=== PATIENT | female | born 1985 | race Two or more races ===

== ENCOUNTER 2017-05-06 15:57 | Inpatient (IN) | payer MEDICAID ==
[~2017-05-06] VITALS: Ht 160 cm; Wt 70.3 kg
--- NOTE | 2017-05-06 16:42 | Emergency Room Report ---
History of Present Illness General Chief Complaint: Abdominal Pain Source: Patient Present Illness HPI 31-year-old female with no sig pmhx p/w abdominal pain 3 days. Patient states pain started gradually, localized to right lower quadrant, non radiating, sharp in nature, constant. No relieving or exacerbating factors. Severity is 8/10. Pt reports n/v, 4 episodes of nbnb vomiting, 4 episodes of watery non bloody diarrhea + fever, chills. Has a history of 2 C-sections No hx of endoscopies/colonoscopies. States her last menstrual period was about one week ago. No dysuria no hematuria. Allergies: Coded Allergies: No Known Allergies (Unverified , 05/06/17) Patient History Past Medical History: see triage record Past Surgical History: none Pertinent Family History: none Last Menstrual Period: "Irregular - I don't remember" Has had tubal ligation Now: No Reviewed Nursing Documentation: PMH: Agreed, PSxH: Agreed Review of Systems All Other Systems: negative except mentioned in HPI Physical Exam Vital Signs Date Time Temp Pulse Resp B/P (MAP) Pulse Ox O2 Delivery O2 Flow Rate FiO2 05/06/17 16:12 100.6 99 18 113/68 100 Room Air Sp02 EP Interpretation: reviewed, normal General Appearance: alert, GCS 15, non-toxic, moderate distress Head: normocephalic, atraumatic Eyes: bilateral eye normal inspection, bilateral eye PERRL, bilateral eye EOMI ENT: normal ENT inspection, normal pharynx, normal voice, moist mucus membranes Neck: normal inspection, full range of motion, supple Respiratory: normal inspection, lungs clear, normal breath sounds, no respiratory distress, no retraction, no wheezing, speaking full sentences, chest symmetrical Cardiovascular #1: normal inspection, regular rate, rhythm, normal capillary refill Cardiovascular #2: 2+ radial (R), 2+ radial (L) Gastrointestinal: other - Right lower quadrant tenderness, voluntary guarding, rebound Musculoskeletal: normal inspection, back normal, normal range of motion, non- tender Neurologic: normal inspection, alert, oriented x3, responsive, motor strength/ tone normal, sensory intact, normal gait, speech normal Psychiatric: normal inspection, judgement/insight normal, memory normal Skin: normal inspection, normal color, no rash, warm/dry, well hydrated, normal turgor Medical Decision Making Diagnostic Impression: Primary Impression: Acute appendicitis with appendiceal abscess ER Course 31-year-old female, right-sided abdominal pain for 3 days Differential Diagnosis: High suspicion for appendicitis given physical exam Other differential diagnoses include : Gastritis, gastroenteritis, cholecystitis , diverticulitis, SBO, UTI/pyelo Plan: Basic labs, ua Tylenol, antibiotics, pain control, IVF CT abdopelvis ER course: Patient has remained HD stable during ED stay. Given fluids and antibiotics CT positive for appendicitis with abscess formation Dr Sherman made aware of patient-- will go to OR Disposition: Patient will be admitted to med surg. Discussed with hospitalist Dr Parker who has accepted patient Please note that this Emergency Department Report was dictated using Fanearcritical care unit nurse technology software, occasionally this can lead to erroneous entry secondary to interpretation by the dictation equipment Laboratory Tests Test 05/06/17 16:27 05/06/17 17:45 Urine Color Pale yellow Urine Appearance Clear Urine pH 7 (4.5-8.0) Urine Specific [place] 1.005 (1.005-1.035) Urine Protein Negative (NEGATIVE) Urine Glucose (UA) Negative (NEGATIVE) Urine Ketones Negative (NEGATIVE) Urine Occult Blood 4+ (NEGATIVE) H Urine Nitrite Negative (NEGATIVE) Urine Bilirubin Negative (NEGATIVE) Urine Urobilinogen Normal MG/DL (0.0-1.0) Urine Leukocyte Esterase Negative (NEGATIVE) Urine RBC 5-10 /HPF (0 - 2) H Urine WBC 0-2 /HPF (0 - 2) Urine Squamous Epithelial Cells Few /LPF (NONE/OCC) Urine Bacteria Few /HPF (NONE) Urine HCG, Qualitative Negative White Blood Count 12.4 K/UL (4.8-10.8) H Red Blood Count 3.79 M/UL (4.20-5.40) L Hemoglobin 11.4 G/DL (12.0-16.0) L Hematocrit 35.1 % (37.0-47.0) L Mean Corpuscular Volume 93 FL (80-99) Mean Corpuscular Hemoglobin 30.0 PG (27.0-31.0) Mean Corpuscular Hemoglobin Concent 32.4 G/DL (32.0-36.0) Red Cell Distribution Width 11.2 % (11.6-14.8) L Platelet Count 181 K/UL (150-450) Mean Platelet Volume 8.6 FL (6.5-10.1) Neutrophils (%) (Auto) 79.4 % (45.0-75.0) H Lymphocytes (%) (Auto) 11.4 % (20.0-45.0) L Monocytes (%) (Auto) 8.4 % (1.0-10.0) Eosinophils (%) (Auto) 0.2 % (0.0-3.0) Basophils (%) (Auto) 0.5 % (0.0-2.0) Sodium Level 137 MMOL/L (136-145) Potassium Level 4.2 MMOL/L (3.5-5.1) Chloride Level 103 MMOL/L (98-107) Carbon Dioxide Level 28 MMOL/L (21-32) Anion Gap 6 mmol/L (5-15) Blood Urea Nitrogen 9 mg/dL (7-18) Creatinine 0.7 MG/DL (0.55-1.30) Estimate Glomerular Filtration Rate > 60 mL/min (>60) Glucose Level 98 MG/DL (74-106) Calcium Level 8.8 MG/DL (8.5-10.1) Total Bilirubin 2.1 MG/DL (0.2-1.0) H Direct Bilirubin 0.4 MG/DL (0.0-0.3) H Aspartate Amino Transferase (AST) 28 U/L (15-37) Alanine Aminotransferase (ALT) 44 U/L (12-78) Alkaline Phosphatase 90 U/L (46-116) Total Protein 7.7 G/DL (6.4-8.2) Albumin 3.3 G/DL (3.4-5.0) L Globulin 4.4 g/dL Albumin/Globulin Ratio 0.8 (1.0-2.7) L Lipase 101 U/L (73-393) CT/MRI/US Diagnostic Results CT/MRI/US Diagnostic Results : Imaging Test Ordered: CT abdo pelvis w/ IV contrast Impression CT ABDOMEN & PELVIS With Contrast: No prior. Trace pleural fluid suspected on the right. Atelectasis. Findings compatible with appendicitis with appendicular abscess. Appendix has thick harrison with appendiceal caliber up to about 14 mm on axial images. Adjacent to the appendix/posterior to the cecum is an air-containing fluid collection suspicious for abscess formation. Measures about 4.5 cm on axials, image 62/3. Small amount of free fluid. There is some uroepithelial thickening of right ureters suspected which is likely reactive. 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 Correlate with UA. Suspect reactive nodes along with a reactive bowel wall thickening in region of inflamed appendix. Cholelithiasis. Involuting right ovarian cyst. Last Vital Signs Date Time Temp Pulse Resp B/P (MAP) Pulse Ox O2 Delivery O2 Flow Rate FiO2 05/06/17 16:12 100.6 99 18 113/68 100 Room Air Disposition: ADMITTED INPATIENT Condition: Serious Darby Ball M.D. May 06, 2017 16:42
[2017-05-06] MEDS ORDERED: cefTRIAXone 1 GM in NS 55 ML IVPB ONE (16:45)
[2017-05-06] MEDS ORDERED: Morphine Sulfate 4mg/ml Inj IVP ONE ×2 (16:45→20:15)
[2017-05-06 17:02] LABS: APPEARANCE,URINE CLEAR; KETONES,URINE NEGATIVE (NEGATIVE); LEUKOCYTE ESTERASE ,URINE NEGATIVE (NEGATIVE); NITRITE,URINE NEGATIVE (NEGATIVE); PH,URINE 7 (4.5-8.0); PROTEIN,URINE NEGATIVE (NEGATIVE); UROBILINOGEN,URINE NORMAL MG/DL (0.0-1.0)
[2017-05-06 17:09] LABS: BACTERIA,URINE FEW /HPF; SQUAMOUS EPITHELIAL CELL,UR FEW /LPF (NONE/OCC); WBC,URINE 0-2 /HPF (0 - 2)
[2017-05-06 18:09] LABS: BASOPHILS % (AUTO) 0.5 % (0.0-2.0); EOSINOPHILS % (AUTO) 0.2 % (0.0-3.0); LYMPHOCYTES % (AUTO) 11.4 % (20.0-45.0); MEAN CORPUSCULAR HGB CONC 32.4 G/DL (32.0-36.0); MEAN CORPUSCULAR VOLUME 93 FL (80-99); MEAN PLATELET VOLUME 8.6 FL (6.5-10.1); MONOCYTES % (AUTO) 8.4 % (1.0-10.0); NEUTROPHILS % (AUTO) 79.4 % (45.0-75.0); PLATELET COUNT 181 K/UL (150-450); RED BLOOD COUNT 3.79 M/UL (4.20-5.40); RED CELL DISTRIBUTION WIDTH 11.2 % (11.6-14.8); WHITE BLOOD COUNT 12.4 K/UL (4.8-10.8)
[2017-05-06 18:18] LABS: ANION GAP 6 mmol/L (5-15); CALCIUM 8.8 MG/DL (8.5-10.1); CARBON DIOXIDE 28 MMOL/L (21-32); CHLORIDE 103 MMOL/L (98-107); CREATININE 0.7 MG/DL (0.55-1.30); GLOMERULAR FILTRATION RATE > 60 mL/min (>60); POTASSIUM 4.2 MMOL/L (3.5-5.1); SODIUM 137 MMOL/L (136-145)
[2017-05-06 18:28] LABS: ALANINE AMINOTRANSFERASE 44 U/L (12-78); ALBUMIN/GLOBULIN RATIO 0.8 (1.0-2.7); ASPARTATE AMINO TRANSFERASE 28 U/L (15-37); LIPASE 101 U/L (73-393); TOTAL PROTEIN 7.7 G/DL (6.4-8.2)
[2017-05-06 18:30] LABS: BILIRUBIN,DIRECT 0.4 MG/DL (0.0-0.3)
[2017-05-06] MEDS ORDERED: Lidocaine 1% 10mg/ml/Epi 0.005mg/ml 30ml vial INJ ONE (21:24)
[2017-05-06] MEDS ORDERED: Ropivacaine 5mg/ml Vial 30ml INJ ONE (21:24)
[2017-05-06] MEDS ORDERED: fentaNYL 100 mcg/2 mL IV ONE (22:00)
[2017-05-06] MEDS ORDERED: NS Irrig 1000ml ONE (22:00)
[2017-05-06] MEDS ORDERED: Midazolam 2mg/2ml Inj ONE (22:00)
[2017-05-06] MEDS ORDERED: Propofol 200mg/20ml IV ONE (22:00)
[2017-05-06] MEDS ORDERED: Succinylcholine 20mg/ml 10ml vial ONE (22:00)
[2017-05-06] MEDS ORDERED: LR 1000ml ONE (22:00)
[2017-05-06] MEDS ORDERED: Sterile Water Irrig 1000ml IRRIG ONE (22:00)
[2017-05-06] MEDS ORDERED: Ketorolac 30mg Inj ONE (22:00)
[2017-05-06] MEDS ORDERED: Zemuron 50mg/5ml Inj IV ONE (22:00)
[2017-05-06] MEDS ORDERED: NS Irrig 1000ml IRRIG ONE (22:20)
--- NOTE | 2017-05-06 22:38 | Pre-Procedure Note/Attestation ---
Pre-Procedure Note/Attestation Complete Prior to Procedure Planned Procedure: not applicable Procedure Narrative: exploratory laparoscopy, appendectomy possible open appendectomy Indications for Procedure Pre-Operative Diagnosis: acute abdomen R/O acute appy Attestation I attest that I discussed the nature of the procedure; its benefits; risks and complications; and alternatives (and the risks and benefits of such alternatives ), prior to the procedure, with the patient (or the patient's legal patient account representative). I attest that, if there was a reasonable possibility of needing a blood transfusion, the patient (or the patient's legal patient account representative) was given the [facility] standardized written summary, pursuant to the [place] Blood Safety Act ([place] Health and Safety Code # 1645, as amended). I attest that I re-evaluated the patient just prior to the surgery and that there has been no change in the patient's H&P, except as documented below: VICK GO May 06, 2017 22:38
[2017-05-06] MEDS ORDERED: LR 1000ml 1,000 ML IVLG SCH (23:02)
--- NOTE | 2017-05-06 23:02 | Anethesia Preoperative Eval ---
Anesthesia Pre-op PMH/ROS General Date of Evaluation: May 06, 2017 Time of Evaluation: 22:10 Anesthesiologist: Mckayla ASA Score: ASA 2 Mallampati Score Class I : Soft palate, uvula, fauces, pillars visible Class II: Soft palate, uvula, fauces visible Class III: Soft palate, base of uvula visible Class IV: Only hard plate visible Mallampati Classification: Class II Surgeon: Israel Diagnosis: Acute appendicits Surgical Procedure: Laparoscopic appendectomy Anesthesia History: none Family History: no anesthesia problems Allergies: Coded Allergies: No Known Allergies (Unverified , 05/06/17) Medications: see eMAR Past Medical History Cardiovascular: Denies: HTN, CAD, SD, valve dz, arrhythmia, other Pulmonary: Denies: asthma, COPD, FLORA, other Gastrointestinal/Genitourinary: Reports: GERD - mild, Denies: CRI, ESRD, other Neurologic/Psychiatric: Denies: dementia, CVA, depression/anxiety, TIA, other Endocrine: Denies: DM, hypothyroidism, steroids, other HEENT: Denies: cataract (L), cataract (R), glaucoma, [place] (L), [place] (R), other Hematology/Immune: Denies: anemia, DVT, bleeding disorder, other Musculoskeletal/Integumentary: Denies: OA, RA, DJD, DDD, edema, other PMH Narrative: admitted for acute abdominal pain vomiting diarrhea PSxH Narrative: C sections x2 Anesthesia Pre-op Phys. Exam Physician Exam Last Vital Signs Date Time Temp Pulse Resp B/P (MAP) Pulse Ox O2 Delivery O2 Flow Rate FiO2 05/06/17 16:12 100.6 99 18 113/68 100 Room Air Constitutional: NAD Neurologic: CN 2-12 intact Cardiovascular: RRR, no M/R/G Respiratory: CTA Gastrointestinal: other - tender on palpation Airway Exam Mallampati Score: Class II MO: full Neck: fexible ROM: full Teeth: intact Dentures: no upper, no lower Anesthesia Pre-op A/P Labs Hematology Test 05/06/17 17:45 White Blood Count 12.4 K/UL (4.8-10.8) H Red Blood Count 3.79 M/UL (4.20-5.40) L Hemoglobin 11.4 G/DL (12.0-16.0) L Hematocrit 35.1 % (37.0-47.0) L Mean Corpuscular Volume 93 FL (80-99) Mean Corpuscular Hemoglobin 30.0 PG (27.0-31.0) Mean Corpuscular Hemoglobin Concent 32.4 G/DL (32.0-36.0) Red Cell Distribution Width 11.2 % (11.6-14.8) L Platelet Count 181 K/UL (150-450) Mean Platelet Volume 8.6 FL (6.5-10.1) Neutrophils (%) (Auto) 79.4 % (45.0-75.0) H Lymphocytes (%) (Auto) 11.4 % (20.0-45.0) L Monocytes (%) (Auto) 8.4 % (1.0-10.0) Eosinophils (%) (Auto) 0.2 % (0.0-3.0) Basophils (%) (Auto) 0.5 % (0.0-2.0) Chemistry Test 05/06/17 17:45 Sodium Level 137 MMOL/L (136-145) Potassium Level 4.2 MMOL/L (3.5-5.1) Chloride Level 103 MMOL/L (98-107) Carbon Dioxide Level 28 MMOL/L (21-32) Anion Gap 6 mmol/L (5-15) Blood Urea Nitrogen 9 mg/dL (7-18) Creatinine 0.7 MG/DL (0.55-1.30) Estimat Glomerular Filtration Rate > 60 mL/min (>60) Glucose Level 98 MG/DL (74-106) Calcium Level 8.8 MG/DL (8.5-10.1) Total Bilirubin 2.1 MG/DL (0.2-1.0) H Direct Bilirubin 0.4 MG/DL (0.0-0.3) H Aspartate Amino Transf (AST/SGOT) 28 U/L (15-37) Alanine Aminotransferase (ALT/SGPT) 44 U/L (12-78) Alkaline Phosphatase 90 U/L (46-116) Total Protein 7.7 G/DL (6.4-8.2) Albumin 3.3 G/DL (3.4-5.0) L Globulin 4.4 g/dL Albumin/Globulin Ratio 0.8 (1.0-2.7) L Lipase 101 U/L (73-393) Urine Test Test 05/06/17 16:27 Urine HCG, Qualitative Negative Risk Assessment & Plan Assessment: ASA2 E Plan: GA with ETT PONV prevention Status Change Before Surgery: No Pre-Antibiotics Drug: Ancef 1 gr Given Within 1 Hr of Incision: Yes Time Given: 22:40 MARIALUISA MAURO M.D. May 06, 2017 23:02
[2017-05-06] MEDS ORDERED: Ketorolac 30mg Inj IV PRN (23:15)
[2017-05-06] MEDS ORDERED: Metoclopramide 10mg/2ml Inj IVP PRN ×2 (23:15→23:45)
[2017-05-06] MEDS ORDERED: Hydromorphone 0.5mg/0.5ml inj IVP PRN (23:15)
[2017-05-06] MEDS ORDERED: Meperidine 50mg/ml Inj(FOR RIGORS ONLY) IV PRN (23:15)
[2017-05-06] MEDS ORDERED: DiphenhydrAMINE 50mg/ml Inj IVP PRN (23:15)
[2017-05-06] MEDS ORDERED: Midazolam 2mg/2ml Inj IVP PRN (23:15)
--- NOTE | 2017-05-06 23:36 | Brief Operative Note ---
Immediate Post Operative Note Operative Note Pre-op Diagnosis: acute abdomen R/O acute appy Procedure: Lap Appy And drainage of periappendiceal abscess Post-op Diagnosis: Acute appendicitis with periappendiceal abscess Findings: consistent w/pre-op dx studies Surgeon: MD Ruddy Vendor Quality Supervisor: none Anesthesiologist: Dr. Block Anesthesia: general Specimen: yes Complications: none Condition: stable Fluids: per anesthesiologist Estimated Blood Loss: minimal Drains: TAMY Implant(s) used?: No VICK GO May 06, 2017 23:36
[2017-05-06 23:43] VITALS: BP 102/69
[2017-05-06] MEDS ORDERED: HYDROmorphone 1mg/ml Carpuject IVP PRN (23:45)
[2017-05-06] MEDS ORDERED: Acetaminophen 650 MG SUPP RECTAL PRN (23:45)
--- NOTE | 2017-05-06 23:49 | Immediate Post-Op Evaluation ---
Immediate Post-Op Evalulation Immediate Post-Op Evalulation Procedure: Laparoscopic appendectomy Date of Evaluation: May 06, 2017 Time of Evaluation: 23:48 IV Fluids: 800 Blood Products: none Estimated Blood Loss: 50 Urinary Output: 500 Blood Pressure Systolic: 107 Blood Pressure Diastolic: 68 Pulse Rate: 86 Respiratory Rate: 22 O2 Sat by Pulse Oximetry: 99 Temperature (Fahrenheit): 98.6 Pain Score (1-10): 2 Nausea: No Vomiting: No Complications none Patient Status: reacts, patent, extubated, none Hydration Status: adequate MARIALUISA MAURO M.D. May 06, 2017 23:49
[2017-05-06 23:50] VITALS: BP 107/65
[2017-05-07] VITALS (13 sets, daily range): BP systolic 101–121; BP diastolic 61–73
[2017-05-07] MEDS: D5 1/2NS w/KCl 20mEq 1,000 ML IV SCH ×3 (01:00→21:05)
[2017-05-07] MEDS ORDERED: Piperacillin/Tazobactam 4.5 GM in D5W 110 ML IVPB SCH (01:00)
--- NOTE | 2017-05-07 02:00 | Operative Note - Dictated ---
DATE OF OPERATION: 05/06/2017 PREOPERATIVE DIAGNOSIS: Acute abdomen. POSTOPERATIVE DIAGNOSIS: Acute appendicitis with periappendiceal abscess. OPERATION: 1. Laparoscopic appendectomy. 2. Drainage of the periappendiceal abscess. COMPLICATION: None. SURGEON: Piotr Wood M.D. PRODUCTION ESTIMATOR: None. ANESTHESIA: General with endotracheal tube. ANESTHESIOLOGIST: Rui Block M.D. INDICATION: This is a 31-year-old female, who presented to emergency room complaining of abdominal pain since 05/04/2017 early in the morning. The pain was located at the right lower quadrant associated with nausea and recently she had fever. Physical examination showed tenderness, rebound tenderness, and guarding at the lower abdomen, which was more pronounced at the right lower quadrant. CBC showed a WBC of 12,400 with a left shift. The CAT scan of the abdomen was interpreted as appendicitis with periappendiceal abscess. DESCRIPTION OF PROCEDURE: The patient was placed supine on the operating table, and after general anesthesia with endotracheal tube, the abdomen was properly prepped and draped. Initially a small incision was given above the umbilicus through which a Veress needle was introduced into the intraperitoneal cavity. This cavity was insufflated up to 15 mmHg and then the Veress needle was removed. A 5 mm trocar was placed in the intraperitoneal cavity through the incision above the umbilicus. Laparoscope and camera was introduced into the intraperitoneal cavity through the trocar above the umbilicus and under direct vision a 5 mm trocar was placed at the suprapubic area and a 12 mm trocar was placed at the left lower quadrant of the abdomen. Initially rapid exploration was performed, which showed diaphragm to be normal. The part of the stomach that could be seen was normal. The liver was normal. The bowels were covered with omentum. Exploration of the right lower quadrant cavity was performed and the cecum had adhesion to the posterior abdominal wall. The adhesion was very gradually released and an abscess was drained. The pus was suctioned out and the cavity was irrigated and then further exploration was performed, the appendix was identified. The appendix and mesoappendix was completely isolated and exposed. The appendix and mesoappendix was ligated and transected with the help of the TRINIDAD stapler. The appendix was removed from the intra-abdominal cavity with the help of the Endopouch through the incision at the left lower quadrant of the abdomen. After removal of the appendix, the intra-abdominal cavity was thoroughly irrigated with antibiotic solution, especially the right paracolic gutter under the cecum and pelvis. Exploration of the pelvis was performed, the right ovarian tube as well as the uterus was identified, which were normal. After the complete irrigation, a Josh drain was placed on the right paracolic gutter extended into the pelvis and then was brought out from the trocar site at the suprapubic area. Another exploration was performed and there was no complication or bleeding. The trocars were removed under direct vision. The incisions were infiltrated with a total of 20 mL of Marcaine 0.5% and the subcutaneous tissue was approximated with 4-0 chromic and the skin incisions were approximated with running subcuticular suture of 4-0 chromic. The patient tolerated the procedure very well and was transferred to recovery room in stable condition and extubated. The sponge and needle count correct. Estimated blood loss was 10 mL. Condition of the patient at the end of the procedure was stable. Piotr Wood M.D. DR: KIKE JOB#: [id number] CC:
[2017-05-07] MEDS ORDERED: Zosyn 4.5gm inj ONE (02:12)
--- NOTE | 2017-05-07 02:45 | Consultation ---
DATE OF CONSULTATION: 05/06/2017 PREOPERATIVE CONSULTATION CONSULTING PHYSICIAN: Piotr Wood M.D. REQUESTING PHYSICIAN: ER physician. REASON FOR CONSULTATION: Abdominal pain. HISTORY OF PRESENT ILLNESS: This is a 31-year-old female, who presented to emergency room complaining of abdominal pain for two days. She stated that the pain started on 05/04/2017 early in the morning. This pain is located at the right lower quadrant and associated with nausea, but no vomiting. Today, she has been having diarrhea and she claimed that she had fever but there is no cough, dysuria, or frequency. There is no previous history of similar pain. PAST MEDICAL HISTORY: She denies allergies, asthma, diabetes, hypertension, cardiac and renal diseases. PAST SURGICAL HISTORY: Include x2 and laparoscopic tubal ligation. MEDICATIONS: Currently, she is taking analgesics. SOCIAL HISTORY: The patient is a 31-year-old female, who is and mother of 2 children. 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 Denied smoking and drinking. REVIEW OF SYSTEMS: Noncontributory. PHYSICAL EXAMINATION: GENERAL: The patient appeared to be a well-developed, well-nourished, 31-year-old female, lying on the bed complaining of abdominal pain. HEENT: Head is normocephalic and atraumatic. Eyes, pupils are equal, round, and reactive to light. Mouth is clear. NECK: There is no palpable thyromegaly or adenopathy. CHEST: Clear to auscultation and percussion. HEART: There is no gallop or murmur. S1 and S2 are within normal limits. ABDOMEN: Soft and flat with rebound tenderness and guarding at the lower abdomen, which is more pronounced at right lower quadrant. Bowel sounds are present. There is no palpable organomegaly. GENITAL: Normal. EXTREMITIES: Within normal limits. LABORATORY DATA: CBC has shown WBC of 12,400 with left shift. Chemistry is within normal limits except for the bilirubin total which is 2.1 with direct bilirubin of 0.4. Urine is almost within normal limits. CAT scan of the abdomen has been interpreted as acute appendicitis with possible abscess. ASSESSMENT: Acute abdomen. PLAN: After rehydration, the patient will undergo exploratory laparoscopy, appendectomy, possible open appendectomy. The risks and benefits have been explained to her. She understood and granted a consent. Piotr Wood M.D. DR: BECKA JOB#: [id number] CC:
[2017-05-07] MEDS: Pantoprazole Inj IVP SCH (08:46)
[2017-05-07] MEDS: PIPERACILLIN IVPB SCH ×2 (08:59→17:33)
[2017-05-07] MEDS: D5W IVPB SCH ×2 (08:59→17:33)
[2017-05-07] MEDS: Hydromorphone 0.5mg/0.5ml inj IVP PRN ×4 (08:59→21:50)
[2017-05-07] MEDS: TAZOBACTAM IVPB SCH ×2 (08:59→17:33)
[2017-05-07 09:20] LABS: MEAN CORPUSCULAR HEMOGLOBIN 31.3 PG (27.0-31.0); MEAN CORPUSCULAR HGB CONC 33.3 G/DL (32.0-36.0); MEAN CORPUSCULAR VOLUME 94 FL (80-99); MEAN PLATELET VOLUME 9.1 FL (6.5-10.1); PLATELET COUNT 166 K/UL (150-450); RED BLOOD COUNT 3.49 M/UL (4.20-5.40); RED CELL DISTRIBUTION WIDTH 11.9 % (11.6-14.8); WHITE BLOOD COUNT 10.1 K/UL (4.8-10.8)
[2017-05-07 09:24] LABS: ANION GAP 8 mmol/L (5-15); CALCIUM 8.1 MG/DL (8.5-10.1); CARBON DIOXIDE 25 MMOL/L (21-32); CHLORIDE 106 MMOL/L (98-107); CREATININE 0.7 MG/DL (0.55-1.30); GLOMERULAR FILTRATION RATE > 60 mL/min (>60); POTASSIUM 3.7 MMOL/L (3.5-5.1); SODIUM 138 MMOL/L (136-145)
--- NOTE | 2017-05-07 09:59 | Diagnostic Imaging Report ---
Indication: Abdominal pain Technique: Continuous helical transaxial imaging of the abdomen and pelvis was obtained from the lung bases to the pubic symphysis during intravenous contrast administration. Coronal 2-D reformats were also obtained. Study obtained in a Siemens sensation [address] Automatic Exposure Control was utilized. Total Dose length Product (DLP): 788.[address] Dose Index Volume (CTDIvol): 13.45 mGy Comparison: None Findings: Mild subsegmental atelectasis demonstrated at the posterior dependent aspects of the lung bases. Multiple gallstones are present. The appendix is moderately dilated with wall thickening (for example seen on series 3 images 61-70). There is a moderate amount of inflammation and some fluid accumulation on the right paracolic gutter and cul-de-sac. Findings consistent with acute appendicitis. There is a 3 to 4 cm of prominent fluid at the base of the appendix, but there is no drainable abscess. The ovaries are grossly unremarkable. Uterus noted. Urinary bladder is nondistended. No evidence of bowel obstruction. Other solid organs appear unremarkable. IMPRESSION: Acute appendicitis. Moderate inflammation and fluid. No drainable abscess identified. Cholelithiasis. [facility] has communicated the preliminary results to the Emergency Department. Their findings are largely concordant with this report. The CT scanner at [facility] is accredited by the [employer] and the scans are performed using dose optimization techniques as appropriate to a performed exam including Automatic Exposure control.
[2017-05-07 11:09] LABS: BAND NEUTROPHILS % (MANUAL) 0 % (0-8); BASOPHILS % (MANUAL) 0 % (0-2); EOSINOPHILS % (MANUAL) 0 % (0-3); HYPOCHROMASIA 1+; LYMPHOCYTES % (MANUAL) 3 % (20-45); NEUTROPHILS % (MANUAL) 92 % (45-75); PLATELET ESTIMATE ADEQUATE; PLATELET MORPHOLOGY NORMAL; TOTAL CELLS COUNTED 100
--- NOTE | 2017-05-07 16:30 | History and Physical Report ---
DATE OF ADMISSION: 05/06/2017 CHIEF COMPLAINT: Severe abdominal pain. HISTORY OF PRESENT ILLNESS: This is a 31-year-old female, who presented to the ED with a severe abdominal pain for the last three days prior to admission. The patient was found to have acute appendicitis. She has been operated already by Dr. Wood. PAST MEDICAL HISTORY: Status post tubal ligation. MEDICATIONS: None. ALLERGIES: No known allergies. SOCIAL HISTORY: He is nonsmoker and nondrinker. There is no history of illicit drug abuse. FAMILY HISTORY: Unremarkable. REVIEW OF SYSTEMS: HEENT: Hearing and eyesight are normal. ENDOCRINE: No history of diabetes, thyroid or adrenal problems. RESPIRATORY: She denies shortness of breath, cough or hemoptysis. CARDIOVASCULAR: She denies chest pain or palpitations. GASTROINTESTINAL: No history of hematochezia, melena, hematemesis, diarrhea, or constipation. NEUROLOGICAL: Denies dysuria, frequency, urgency, or hematuria. PHYSICAL EXAMINATION: GENERAL: This is a young female, who is in abdominal pain. VITAL SIGNS: Blood pressure 107/61, pulse 84 and regular, respirations 20, and temperature 97.8 degrees. HEENT: The head is normocephalic and atraumatic. Pupils are equal, round, and reactive to light and accommodation consensually. NECK: Supple. Trachea midline. There was no lymphadenopathy or thyromegaly. LUNGS: Clear to auscultation and percussion. HEART: Regular rate and rhythm without rubs, murmurs, or gallops. ABDOMEN: Tender. Bowel sounds were active. EXTREMITIES: No clubbing, cyanosis, or edema. NEUROLOGIC: She is alert and oriented x4. Cranial nerves II through XII is intact. LABORATORY AND ANCILLARY DATA: CBC shows initially white count 12,400 and today 10,100, hemoglobin initially 11.4 and today 10.8. Basic metabolic panel, glucose today 123. Urinalysis, 4+ occult blood. Imaging reports yesterday, acute appendicitis, otherwise no acute findings. ASSESSMENT: Acute appendicitis. PLAN: The surgery was done and the patient is clinically better. Nimisha Watts M.D. DR: ABIEL JOB#: [id number] CC:
--- NOTE | 2017-05-07 19:34 | General Surgery Progress Note ---
General Surgery-Progress Note Subjective Procedure Performed Lap Appy And drainage of periappendiceal abscess Objective Last 24 Hour Vital Signs Date Time Temp Pulse Resp B/P (MAP) Pulse Ox O2 Delivery O2 Flow Rate FiO2 05/07/17 16:00 97.8 93 20 101/68 95 Room Air 05/07/17 12:20 97.8 84 20 107/61 96 Room Air 05/07/17 08:30 100.2 92 20 103/65 100 Room Air 05/07/17 08:29 Nasal Cannula 4.0 36 05/07/17 05:18 98.0 97 17 114/64 99 Room Air 05/07/17 01:45 98 Nasal Cannula 4.0 36 05/07/17 01:45 Nasal Cannula 4.0 36 05/07/17 01:05 98.4 88 16 108/71 98 Nasal Cannula 3.0 05/07/17 00:50 97.3 89 16 108/72 97 Nasal Cannula 3.0 05/07/17 00:45 98.0 82 20 112/72 100 Nasal Cannula 3.0 05/07/17 00:45 129/88 05/07/17 00:44 97.8 80 18 113/73 100 Nasal Cannula 3.0 05/07/17 00:28 82 20 112/72 100 Nasal Cannula 3.0 05/07/17 00:20 98.0 80 22 110/71 100 Nasal Cannula 3.0 05/07/17 00:10 81 18 108/71 100 Nasal Cannula 3.0 05/07/17 00:00 93 20 111/68 100 Simple Mask 6.0 05/06/17 23:50 88 19 107/65 100 Simple Mask 6.0 05/06/17 23:49 86 22 99 05/06/17 23:43 98.1 82 22 102/69 100 Simple Mask 6.0 I&O Intake and Output 05/07/17 05/08/17 19:00 07:00 Intake Total 700 ml Output Total 800 ml Balance -100 ml Other 700 ml Output Urine Total 700 ml Drainage Total 100 ml Dressing: dry Drains: hernandez Respiratory: clear Abdomen: distended, tenderness, absent bowel sounds Extremities: no tenderness Laboratory Tests Test 05/07/17 08:20 White Blood Count 10.1 K/UL (4.8-10.8) Red Blood Count 3.49 M/UL (4.20-5.40) L Hemoglobin 10.9 G/DL (12.0-16.0) L Hematocrit 32.8 % (37.0-47.0) L Mean Corpuscular Volume 94 FL (80-99) Mean Corpuscular Hemoglobin 31.3 PG (27.0-31.0) H Mean Corpuscular Hemoglobin Concent 33.3 G/DL (32.0-36.0) Red Cell Distribution Width 11.9 % (11.6-14.8) Platelet Count 166 K/UL (150-450) Mean Platelet Volume 9.1 FL (6.5-10.1) Neutrophils (%) (Auto) % (45.0-75.0) Lymphocytes (%) (Auto) % (20.0-45.0) Monocytes (%) (Auto) % (1.0-10.0) Eosinophils (%) (Auto) % (0.0-3.0) Basophils (%) (Auto) % (0.0-2.0) Differential Total Cells Counted 100 Neutrophils % (Manual) 92 % (45-75) H Lymphocytes % (Manual) 3 % (20-45) L Monocytes % (Manual) 5 % (1-10) Eosinophils % (Manual) 0 % (0-3) Basophils % (Manual) 0 % (0-2) Band Neutrophils 0 % (0-8) Platelet Estimate Adequate Platelet Morphology Normal Red Blood Cell Morphology Hypochromasia 1+ Sodium Level 138 MMOL/L (136-145) Potassium Level 3.7 MMOL/L (3.5-5.1) Chloride Level 106 MMOL/L (98-107) Carbon Dioxide Level 25 MMOL/L (21-32) Anion Gap 8 mmol/L (5-15) Blood Urea Nitrogen 8 mg/dL (7-18) Creatinine 0.7 MG/DL (0.55-1.30) Estimat Glomerular Filtration Rate > 60 mL/min (>60) Glucose Level 123 MG/DL (74-106) H Calcium Level 8.1 MG/DL (8.5-10.1) L Assessment Post-op Diagnosis Acute appendicitis with periappendiceal abscess Plan Additional Comments continue present treatment VICK GO May 07, 2017 19:34
[2017-05-08] MEDS: PIPERACILLIN IVPB SCH ×3 (00:26→17:13)
[2017-05-08] MEDS: D5W IVPB SCH ×3 (00:26→17:13)
[2017-05-08] MEDS: TAZOBACTAM IVPB SCH ×3 (00:26→17:13)
[2017-05-08 00:31] VITALS: BP_SYST 67
[2017-05-08 04:00] VITALS: BP 105/70
[2017-05-08] MEDS: Hydromorphone 0.5mg/0.5ml inj IVP PRN ×3 (04:43→14:09)
[2017-05-08] MEDS: D5 1/2NS w/KCl 20mEq 1,000 ML IV SCH ×2 (06:25→17:00)
[2017-05-08 08:00] VITALS: BP 102/59
[2017-05-08 08:56] LABS: BASOPHILS % (AUTO) 0.4 % (0.0-2.0); EOSINOPHILS % (AUTO) 0.5 % (0.0-3.0); LYMPHOCYTES % (AUTO) 11.7 % (20.0-45.0); MEAN CORPUSCULAR HEMOGLOBIN 31.5 PG (27.0-31.0); MEAN CORPUSCULAR HGB CONC 33.9 G/DL (32.0-36.0); MEAN CORPUSCULAR VOLUME 93 FL (80-99); MEAN PLATELET VOLUME 8.3 FL (6.5-10.1); MONOCYTES % (AUTO) 9.6 % (1.0-10.0); NEUTROPHILS % (AUTO) 77.9 % (45.0-75.0); PLATELET COUNT 196 K/UL (150-450); RED BLOOD COUNT 3.36 M/UL (4.20-5.40); RED CELL DISTRIBUTION WIDTH 11.3 % (11.6-14.8); WHITE BLOOD COUNT 8.2 K/UL (4.8-10.8)
[2017-05-08 09:04] LABS: ANION GAP 6 mmol/L (5-15); CALCIUM 8.1 MG/DL (8.5-10.1); CARBON DIOXIDE 26 MMOL/L (21-32); CHLORIDE 104 MMOL/L (98-107); CREATININE 0.7 MG/DL (0.55-1.30); GLOMERULAR FILTRATION RATE > 60 mL/min (>60); POTASSIUM 3.3 MMOL/L (3.5-5.1); SODIUM 136 MMOL/L (136-145)
[2017-05-08 09:27] LABS: CRP QUANT 27.9 mg/dL (0.00-0.90)
[2017-05-08] MEDS: Pericolace tab ORAL SCH ×2 (09:47→18:00)
[2017-05-08] MEDS: Pantoprazole Inj IVP SCH (09:47)
[2017-05-08 11:56] VITALS: BP 97/59
--- NOTE | 2017-05-08 12:04 | General Progress Note ---
Assessment/Plan Assessment/Plan DC home? Per GS. Clinically doing OK. Subjective Allergies: Coded Allergies: No Known Allergies (Unverified , 05/06/17) Subjective No new c/o Objective Last 24 Hour Vital Signs Date Time Temp Pulse Resp B/P (MAP) Pulse Ox O2 Delivery O2 Flow Rate FiO2 05/08/17 11:56 97.7 72 18 97/59 97 Room Air 05/08/17 08:00 98.7 85 16 102/59 99 Room Air 05/08/17 06:00 98.4 05/08/17 04:00 100.6 94 18 105/70 96 05/08/17 00:31 98.9 101 20 67/ 97 05/07/17 21:57 Nasal Cannula 4.0 36 05/07/17 20:43 100.0 107 19 121/73 97 05/07/17 16:00 97.8 93 20 101/68 95 Room Air 05/07/17 12:20 97.8 84 20 107/61 96 Room Air Laboratory Tests 05/08/17 07:17: White Blood Count 8.2, Red Blood Count 3.36L, Hemoglobin 10.6L, Hematocrit 31.2L , Mean Corpuscular Volume 93, Mean Corpuscular Hemoglobin 31.5H, Mean Corpuscular Hemoglobin Concent 33.9, Red Cell Distribution Width 11.3L, Platelet Count 196, Mean Platelet Volume 8.3, Neutrophils (%) (Auto) 77.9H, Lymphocytes (%) (Auto) 11.7L, Monocytes (%) (Auto) 9.6, Eosinophils (%) (Auto) 0.5, Basophils (%) (Auto) 0.4, Sodium Level 136, Potassium Level 3.3L, Chloride Level 104, Carbon Dioxide Level 26, Anion Gap 6, Blood Urea Nitrogen 4L, Creatinine 0.7, Estimat Glomerular Filtration Rate > 60, Glucose Level 104, Calcium Level 8.1L, C-Reactive Protein, Quantitative 27.9H Height (Feet): 5 Height (Inches): 3.00 Weight (Pounds): 155 Objective Obese CV RR Lungs CTA Abd Tender. Has empty TAMY drain. E No CCE TJ ERNANDEZ May 08, 2017 12:04
--- NOTE | 2017-05-08 12:35 | 48 Hour Post Anesthesia Eval ---
Post Anesthesia Evaluation Procedure: Laparoscopic appendectomy Date of Evaluation: May 08, 2017 Time of Evaluation: 12:25 Blood Pressure Systolic: 97 0: 59 Pulse Rate: 72 Respiratory Rate: 18 Temperature (Fahrenheit): 97.3 O2 Sat by Pulse Oximetry: 97 Nausea: No Vomiting: No Pain Intensity: 3 Hydration Status: adequate Cardiopulmonary Status: Stable Mental Status/LOC: patient returned to baseline Follow-up Care/Observations: As per surgery Post-Anesthesia Complications: No anesthetic complication Follow-up care needed: N/A SARAH CEDEÑO M.D. May 08, 2017 12:35
[2017-05-08 16:00] VITALS: BP 102/71
--- NOTE | 2017-05-08 17:31 | General Surgery Progress Note ---
General Surgery-Progress Note Subjective Procedure Performed Lap Appy And drainage of periappendiceal abscess Symptoms: improved, BM Objective Last 24 Hour Vital Signs Date Time Temp Pulse Resp B/P (MAP) Pulse Ox O2 Delivery O2 Flow Rate FiO2 05/08/17 16:00 99.2 87 20 102/71 96 Room Air 05/08/17 12:35 72 18 97 05/08/17 11:56 97.7 72 18 97/59 97 Room Air 05/08/17 08:00 98.7 85 16 102/59 99 Room Air 05/08/17 06:00 98.4 05/08/17 04:00 100.6 94 18 105/70 96 05/08/17 00:31 98.9 101 20 67/ 97 05/07/17 21:57 Nasal Cannula 4.0 36 05/07/17 20:43 100.0 107 19 121/73 97 I&O Intake and Output 05/08/17 05/09/17 19:00 07:00 Intake Total 500 ml Balance 500 ml IV Total 500 ml Wound: clean, intact Drains: none Respiratory: clear Abdomen: soft, flat, tenderness, present bowel sounds Extremities: no tenderness Laboratory Tests Test 05/08/17 07:17 White Blood Count 8.2 K/UL (4.8-10.8) Red Blood Count 3.36 M/UL (4.20-5.40) L Hemoglobin 10.6 G/DL (12.0-16.0) L Hematocrit 31.2 % (37.0-47.0) L Mean Corpuscular Volume 93 FL (80-99) Mean Corpuscular Hemoglobin 31.5 PG (27.0-31.0) H Mean Corpuscular Hemoglobin Concent 33.9 G/DL (32.0-36.0) Red Cell Distribution Width 11.3 % (11.6-14.8) L Platelet Count 196 K/UL (150-450) Mean Platelet Volume 8.3 FL (6.5-10.1) Neutrophils (%) (Auto) 77.9 % (45.0-75.0) H Lymphocytes (%) (Auto) 11.7 % (20.0-45.0) L Monocytes (%) (Auto) 9.6 % (1.0-10.0) Eosinophils (%) (Auto) 0.5 % (0.0-3.0) Basophils (%) (Auto) 0.4 % (0.0-2.0) Sodium Level 136 MMOL/L (136-145) Potassium Level 3.3 MMOL/L (3.5-5.1) L Chloride Level 104 MMOL/L (98-107) Carbon Dioxide Level 26 MMOL/L (21-32) Anion Gap 6 mmol/L (5-15) Blood Urea Nitrogen 4 mg/dL (7-18) L Creatinine 0.7 MG/DL (0.55-1.30) Estimat Glomerular Filtration Rate > 60 mL/min (>60) Glucose Level 104 MG/DL (74-106) Calcium Level 8.1 MG/DL (8.5-10.1) L C-Reactive Protein, Quantitative 27.9 mg/dL (0.00-0.90) H Assessment Post-op Diagnosis Acute appendicitis with periappendiceal abscess Plan Additional Comments discharge to home VICK GO May 08, 2017 17:31
--- NOTE | 2017-05-08 17:33 | Discharge Instructions ---
Discharge Instructions Discharge Instructions Follow up with: my office one week Diet: regular Resume Normal Activity?: Yes Activity: as tolerated For Surgical Patients Dressing Care: other - dressing will be removed by surgeon May shower: Yes For Congestive Heart Failure Reminder Report to your physician any weight gain of 5 pounds or more in one week. VICK GO May 08, 2017 17:33
[2017-05-08] MEDS ORDERED: CEPHALEXIN500 MG ORAL (18:10)
[2017-05-08] MEDS ORDERED: TRAMADOL HCL100 M2 ORAL (18:12)
[2017-05-08] MEDS ORDERED: Tubing IV Secondary IV ONE (19:49)
--- NOTE | 2017-05-09 17:04 | Discharge Summary ---
Discharge Summary Hospital Course Date of Admission May 06, 2017 at 20:56 Date of Discharge May 08, 2017 at 19:50 Admitting Diagnosis appendicitis HPI Myriam Carcamo is a 31 year old female who was admitted on May 06, 2017 at 20: 56 for Appendicitis Hospital Course [id number] Discharge Discharge Disposition Patient was discharged to Home (01) Discharge Diagnoses: Discharge Instructions Discharge Instructions Follow up with: my office one week Activity: as tolerated For Surgical Patients Dressing Care: other - dressing will be removed by surgeon May shower: Yes Vanda Hutchins NP May 09, 2017 17:04
--- NOTE | 2017-05-10 02:45 | Discharge Summary 2 SIG ---
DATE OF ADMISSION: 05/06/2017 DATE OF DISCHARGE: 05/08/2017 BEHAVIORAL INSTRUCTOR: Piotr Wood M.D. CHIEF COMPLAINT: Abdominal pain. REASON FOR ADMISSION: The patient is a 31-year-old female, who presented to ED complaining of severe abdominal pain for the past three days. The pain initially at the right lower quadrant, nonradiating, sharp in nature, and had 4 episodes of nonbloody vomiting and 4 episodes of watery nonbloody diarrhea. There was positive fever and chills. She has history of 2 C-sections. Last menstrual period was a week ago. On evaluation at ED, CT scan was positive for appendicitis with abscess formation. The patient was then admitted to medical floor for appendicitis with appendiceal abscess. HOSPITAL COURSE: The patient was started on IV hydration and was placed on n.p.o., was given pain management, and was started on IV Zosyn. Dr. Wood was consulted. She underwent laparoscopic appendectomy and drainage of periappendiceal abscess on 05/06/2017. Postoperatively, diet was advanced. She was tolerating diet and had bowel movement. Vitals had been stable. She was eventually discharged home. FINAL DIAGNOSES: 1. Acute appendicitis. 2. Status post laparoscopic appendectomy with drainage of periappendiceal abscess. DISPOSITION: The patient was discharged home. PROCEDURE DONE: Laparoscopic appendectomy and drainage of appendiceal abscess on 05/06/2017. DISCHARGE MEDICATIONS: Continue with Keflex 500 mg q.6 hours and tramadol 50 mg q.4 hours p.r.n. pain. DISCHARGE INSTRUCTIONS: The patient to follow up with surgery in a week. Nimisha Watts M.D. I have been assigned to dictate discharge summary on this account and I was not involved in the patient's management. Vanda Hutchins N.P. DR: Tisha JOB#: [id number] CC: DUNCAN
== END 2017-05-08 19:50 | disposition home or self-care (01) | DRG 225 ==
LOC: EMR 16:25 → EDBEDREQ 20:14 → 3E 20:56 → EDBEDREQ 21:36
PROC: 0DTJ4ZZ Resection of Appendix, Percutaneous Endoscopic Approach (ICD-10-PCS; principal; 2017-05-06 22:00)
DX: K35.3 Acute appendicitis with localized peritonitis (principal)
CPT/HCPCS: 36415; 74177; 80048; 80053; 81003; 81025; 82248; 83690; 85007; 85025; 86140; 94003; 94150; 94760; 99285; C9399; J2250; J2405

== ENCOUNTER 2020-05-24 23:18 | Emergency (ER) | payer MEDICAID ==
[~2020-05-24] VITALS: Ht 162.6 cm; Wt 74.8 kg
[~2020-05-24 23:18] MED LIST: CEPHALEXIN500 MG ORAL; TRAMADOL HCL100 M2 ORAL
[2020-05-24] MEDS ORDERED: HYDROcodone/Acetamin 5/325 tab ORAL ONE (23:30)
--- NOTE | 2020-05-24 23:34 | Emergency Room Report ---
History of Present Illness General Chief Complaint: Upper Extremity Injury Source: Patient Present Illness HPI This is a 35-year-old female who is right-hand dominant. She presents with chief complaint of left elbow pain. She said that on Sunday she was rollerskating and fell directly onto the left arm elbow area. It was very swollen and painful. She did not go to the hospital. Since then the swelling go down but now is of bruising. She felt numbness to her fingers especially on the ulnar side. She also said that when she tried to move her elbow she felt bone moving around. Pain is 9 out of 10. Worse with movement. Better with rest. No other injury. Allergies: Coded Allergies: No Known Allergies (Unverified , 05/06/17) COVID-19 Screening Contact w/high risk pt: No Experienced COVID-19 symptoms?: No COVID-19 Testing performed VENEER CLIPPER HELPER: No Patient History Past Medical History: see triage record, old chart reviewed Past Surgical History: other Pertinent Family History: none Social History: Denies: smoking Last Menstrual Period: 04/2020 Now: No Immunizations: other Reviewed Nursing Documentation: PMH: Agreed; PSxH: Agreed Nursing Documentation-PMH Hx Cardiac Problems: No Hx Neurological Problems: No Review of Systems Eye: Denies: eye pain, blurred vision ENT: Denies: ear pain, nose congestion, throat swelling Respiratory: Denies: cough, shortness of breath Cardiovascular: Denies: chest pain, palpitations Gastrointestinal: Denies: abdominal pain, diarrhea, nausea, vomiting Musculoskeletal: Reports: joint pain, joint swelling; Denies: back pain Skin: Denies: rash Neurological: Denies: headache, numbness Endocrine: Denies: increased thirst, increased urine Hematologic/Lymphatic: Denies: easy bruising All Other Systems: negative except mentioned in HPI Physical Exam Vital Signs Date Time Temp Pulse Resp B/P (MAP) Pulse Ox O2 Delivery O2 Flow Rate FiO2 05/24/20 23:23 98.8 69 18 132/87 (102) 98 Room Air Vitals normal Sp02 EP Interpretation: reviewed, normal General Appearance: well appearing, no apparent distress, alert Head: normocephalic, atraumatic Eyes: bilateral eye PERRL, bilateral eye EOMI ENT: hearing grossly normal, normal pharynx Neck: full range of motion, supple, no meningismus Respiratory: chest non-tender, lungs clear, normal breath sounds Cardiovascular #1: regular rate, rhythm, no murmur Gastrointestinal: normal bowel sounds, non tender, no mass, no organomegaly, no bruit, non-distended Musculoskeletal: back normal, gait/station normal, other - Left upper extremity: She has edema to the elbow. Tender to palpation. Decreased range of motion. She has ecchymosis to the distal upper arm to the proximal forearm. Wrist is nontender. Pulse normal. Shoulder is nontender. Psychiatric: mood/affect normal Procedures Splinting Splinting : Consent: Verbal Location: Left elbow Hand-Made Type: plaster Splint: posterior long Pre-Proc Neuro Vasc Exam: normal Post-Proc Neuro Vasc Exam: normal Patient Tolerated: Well Complications: None Medical Decision Making Diagnostic Impression: Primary Impression: Injury of left upper extremity Qualified Codes: S49.92XA - Unspecified injury of left shoulder and upper arm, initial encounter ER Course She presents with injury to her left elbow. There is no obvious fracture on x- rays but there is a subtle anterior sail sign. I suspect she may have supracondylar fracture or radial head fracture. Splinted and a sling given. Other X-Ray Diagnostic Results Other X-Ray Diagnostic Results : X-Ray ordered: Left elbow x-rays # of Views/Limited Vs Complete: 3 View Indication: Pain EP Interpretation: Yes Interpretation: no dislocation, no fractures, other - Soft tissue swelling Impression: Other - Soft tissue swelling Electronically Signed by: Evan Ball MD Last Vital Signs Date Time Temp Pulse Resp B/P (MAP) Pulse Ox O2 Delivery O2 Flow Rate FiO2 05/24/20 23:23 98.8 69 18 132/87 (102) 98 Room Air Status: improved Disposition: HOME, SELF-CARE Condition: Stable Scripts Ibuprofen* (MOTRIN*) 600 Mg Tablet 600 MG ORAL Q6H PRN for For Pain, #30 TAB 0 Refills Prov: Evan Ball MD 05/25/20 Hydrocodone/Acetaminophen 5-325* (HYDROCODONE/ACETAMINOPHEN 5-325*) 1 Each Tablet 1 TAB ORAL Q6H PRN for For Pain, #15 TAB 0 Refills Prov: Evan Ball MD 05/25/20 Additional Instructions: Wear splint and sling. Ice pack to area. Follow-up with your doctor in 1 to 2 weeks for recheck. If still painful, will knee repeat x-rays. You may need a referral to see orthopedic doctor. Return if symptoms worsen. Evan Ball MD May 24, 2020 23:34
--- NOTE | 2020-05-24 23:40 | NUR ---
ED Nurse Note: Pt wlaked in from home. She is axox4. She is ambulatory and walks with a steady gait. Her vitals are stable on RA as documented. She states that she had a ground level fall on to her left arm about a week ago. There is purple discoloration around her elbow and down her forearm. She states that she has 9/10 pain and that there is some numbness around her elbow. her cap refill is less than three seconds, strong radial pulse on her left extremitiy, she is able to move all fingers.
[2020-05-24 23:45] VITALS: BP 130/85
[2020-05-25] MEDS ORDERED: IBUPROFEN600 M1 ORAL (00:14)
[2020-05-25] MEDS ORDERED: HYDROCODON-ACE1 EA15 ORAL (00:14)
[2020-05-25 00:30] VITALS: BP 135/76
--- NOTE | 2020-05-25 00:32 | NUR ---
ER DISCHARGE NOTE: Patient is cleared to be discharged per ERMD, pt is aox4, on room air, with stable vital signs. pt was given dc and prescription instructions, pt was able to verbalize understanding, pt id band. pt is able to ambulate with steady gait. pt took all belongings. Pt left with family member in a private car.
--- NOTE | 2020-05-25 19:30 | Diagnostic Imaging Report ---
Indications:Slip and fall, pain, trauma Technique: Three or 4 views of the left elbow Comparison: None Findings: No acute fracture. No dislocation. Joint spaces are preserved. Impression: Negative
== END 2020-05-25 00:31 | disposition home or self-care (01) ==
LOC: EMR 23:41
DX: S59.902A Unspecified injury of left elbow, initial encounter (principal); W01.10XA Fall on same level from slipping, tripping and stumbling with subsequent striking against unspecified object, initial encounter; Y93.51 Activity, roller skating (inline) and skateboarding; Y92.9 Unspecified place or not applicable
CPT/HCPCS: 29105; 73080; Z7502; 99283